=== PATIENT | female | born 2000 | race Caucasian/White ===

== ENCOUNTER 2022-04-24 16:14 | Outpatient (CLI) | payer BC, SELFPAY ==
[2022-04-24 17:25] LABS: Cholesterol* 229 mg/dL (90-199)
[2022-04-24 17:26] LABS: Glucose* 111 mg/dL (60-115); HDL Cholesterol* 69 mg/dL (>=50); LDL Cholesterol Calculated 140 mg/dL (<100); Triglycerides* 102 mg/dL (40-149)
== END 2022-04-24 16:15 | disposition home or self-care (01) ==
PROVIDERS: PCP Family Medicine; Visit Provider Registered Nurse
DX: Z01.419 Encounter for gynecological examination (general) (routine) without abnormal findings (principal); Z13.1 Encounter for screening for diabetes mellitus; Z13.6 Encounter for screening for cardiovascular disorders
CPT/HCPCS: 80061; 82947

== ENCOUNTER 2022-09-25 13:48 | Outpatient (CLI) | payer BC, SELFPAY ==
--- NOTE | 2022-09-25 14:00 | CRLHL7_ITS ---
For Patients: As a result of the Century Cures Act, medical imaging exams and procedure reports are released immediately into your electronic medical record. You may view this report before your referring provider. If you have questions, please contact your health care provider. CLINICAL HISTORY: RT OVARIAN CYST, PAIN TECHNIQUE: 2D singleton scale ultrasound. In addition color Doppler and spectral Doppler analysis was performed of the pelvis using a transabdominal approach. FINDINGS: On transabdominal imaging, the myometrium has a normal uniform echotexture. The uterus measures 8.0 x 3.2 x 5.4 cm. Intrauterine device is located within the endometrial canal in good position. The right ovary measures 3.7 x 1.3 x 2.1 cm in size and the left ovary measures 4.7 x 2.4 x 3.1 cm. The ovaries demonstrate normal arterial and venous blood flow on color Doppler and spectral Doppler analysis. Incidental simple left ovarian cyst measuring 2.3 x 1.8 x 2.1 cm. There are no suspicious fluid collections within the cul-de-sac. IMPRESSION: Normal right ovary. No ovarian torsion. No right ovarian cyst. No excess pelvic free fluid. IUD in good position. Dictated by Alan Marquez MD @ 09/28/2022 10:02:32 AM (Electronically Signed)
== END 2022-09-25 13:49 | disposition home or self-care (01) ==
PROVIDERS: PCP Registered Nurse; Visit Provider Internal Medicine Adolescent Medicine
DX: N83.201 Unspecified ovarian cyst, right side (principal)
CPT/HCPCS: 76856

== ENCOUNTER 2023-04-27 12:38 | Outpatient (CLI) | payer BC, SELFPAY ==
[2023-04-27 20:05] LABS: Chlamydia DNA Amplified* NOT DETECTED (No Detected); GC DNA Amplified* NOT DETECTED (No Detected)
== END 2023-04-27 12:39 | disposition home or self-care (01) ==
PROVIDERS: PCP Registered Nurse; Visit Provider Registered Nurse
DX: Z11.3 Encounter for screening for infections with a predominantly sexual mode of transmission (principal); Z13.220 Encounter for screening for lipoid disorders
CPT/HCPCS: 80061; 87491; 87591

== ENCOUNTER 2024-04-25 12:43 | Outpatient (CLI) | payer OTHER, SELFPAY ==
[2024-04-25 16:39] LABS: Chlamydia DNA Amplified* NOT DETECTED (No Detected); GC DNA Amplified* NOT DETECTED (No Detected)
== END 2024-04-25 12:44 | disposition home or self-care (01) ==
PROVIDERS: PCP Registered Nurse; Visit Provider Registered Nurse
DX: Z11.3 Encounter for screening for infections with a predominantly sexual mode of transmission (principal); Z13.220 Encounter for screening for lipoid disorders
CPT/HCPCS: 80061; 87491; 87591

== ENCOUNTER 2025-05-01 12:30 | Outpatient (CLI) | payer OTHER, SELFPAY ==
[2025-05-01 16:45] LABS: Bacterial Vaginosis* POSITIVE (Negative); Candida glab/krus NOT DETECTED (No Detected)
[2025-05-01 17:15] LABS: Chlamydia DNA Amplified* NOT DETECTED (No Detected); GC DNA Amplified* NOT DETECTED (No Detected)
== END 2025-05-01 12:31 | disposition home or self-care (01) ==
PROVIDERS: PCP Family Medicine; Visit Provider Registered Nurse
DX: Z11.3 Encounter for screening for infections with a predominantly sexual mode of transmission (principal); N92.0 Excessive and frequent menstruation with regular cycle
CPT/HCPCS: 81513; 84443; 87481; 87491; 87591; 87661

== ENCOUNTER 2025-05-09 13:45 | Outpatient (CLI) | payer OTHER, SELFPAY ==
--- NOTE | 2025-05-09 14:00 | CRLHL7_ITS ---
For Patients: As a result of the Century Cures Act, medical imaging exams and procedure reports are released immediately into your electronic medical record. You may view this report before your referring provider. If you have questions, please contact your health care provider. INDICATION: Heavy and Irregular Bleeding COMPARISON: 09/25/2022 TECHNIQUE: 2D singleton-scale and color Doppler images were acquired of the pelvis using a transabdominal and transvaginal approach. Transvaginal imaging performed to better visualize the endometrial stripe and ovaries. FINDINGS: Sonographic images demonstrate a normal size and smooth outer contour of the uterus. Uterus measures 9.3 cm in length by 3.5 cm in AP diameter by 4.3 cm in transverse dimension. The myometrium has a normal uniform echotexture. The endometrial lining measures 3.2 mm in composite thickness. IUD is present in the lower uterine segment with the right arm directed superior and the left arm directed inferior, possibly located in the myometrium. The right ovary measures 4.2 x 1.9 x 2.2 cm in size and the left ovary measures 4.4 x 1.5 x 2.5 cm. The ovaries demonstrate normal arterial and venous blood flow on color Doppler analysis. There are no suspicious fluid collections within the cul-de-sac. IMPRESSION: IUD is located in lower uterine segment with the left arm directed inferiorly and possibly extending into the myometrium. Dictated by Alan Marquez MD @ 05/09/2025 3:34:46 PM (Electronically Signed)
== END 2025-05-09 13:46 | disposition home or self-care (01) ==
LOC: US 13:46
PROVIDERS: PCP Family Medicine; Visit Provider Registered Nurse
DX: N92.0 Excessive and frequent menstruation with regular cycle (principal)
CPT/HCPCS: 76830; 76856